=== PATIENT | male | born 1995 ===

== ENCOUNTER 2017-01-27 15:37 | Emergency (ER) | payer OTHER ==
[2017-01-27 15:49] VITALS: BMI 26.4
[2017-01-27] MEDS ORDERED: Lidocaine 5% Patch TD STA (18:06)
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
[2017-01-27] MEDS ORDERED: Lidocaine 5% Patch TD ONE (18:17)
[2017-01-27 18:31] VITALS: BP 146/90; PULSE 18; RESP 20; TEMP 98.6
[2017-01-27 18:50] VITALS: O2SAT 97
--- NOTE | 2017-01-27 19:30 | RAD ---
Chest and right ribs four views History: Fall. Comparison: None available. Findings: No focal infiltrate or effusion. Heart size within normal limits. No evidence of acute displaced fracture. No evidence of gross pneumothorax. Impression: Negative acute. If pain persists, consider chest CT.
--- NOTE | 2017-01-27 19:32 | RAD ---
Lumbar spine three views History: Fall. Comparison: None available. 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 Schmorl's node formation noted at the inferior endplates of the L2, L4, and L5 vertebral bodies. Minimal retrolisthesis of L2 on L3. 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 Schmorl's node formation noted at the inferior endplates of the L2, L4, and L5 vertebral bodies. Minimal retrolisthesis of L2 on L3. If pain persists, consider MRI.
== END 2017-01-27 18:31 | disposition home or self-care (01) ==
LOC: C.ER 15:37
DX: S39.012A Strain of muscle, fascia and tendon of lower back, initial encounter (principal); S20.211A Contusion of right front wall of thorax, initial encounter; X58.XXXA Exposure to other specified factors, initial encounter; Y92.9 Unspecified place or not applicable; J40 Bronchitis, not specified as acute or chronic
CPT/HCPCS: 71101; 72100; 96372; 99284; J1885

== ENCOUNTER 2017-02-14 14:30 | Emergency (ER) | payer OTHER ==
[2017-02-14 14:31] VITALS: BMI 26.4
[2017-02-14 14:51] VITALS: TEMP 98.5
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
[2017-02-14 17:05] VITALS: BP 115/66; PULSE 82; RESP 15
[2017-02-14 19:14] VITALS: O2SAT 98
== END 2017-02-14 17:03 | disposition home or self-care (01) ==
LOC: C.ER 14:30
DX: S02.2XXA Fracture of nasal bones, initial encounter for closed fracture (principal); Y04.0XXA Assault by unarmed brawl or fight, initial encounter; M54.5 Low back pain
CPT/HCPCS: 70160; 72100; 96372; 99283; J1885

== ENCOUNTER 2017-04-12 16:31 | Emergency (ER) | payer OTHER ==
[2017-04-12 16:31] VITALS: BMI 26.4
[2017-04-12 16:45] VITALS: BP 150/69; PULSE 84; RESP 18; TEMP 98; O2SAT 98
[2017-04-12] MEDS ORDERED: Sodium Chloride 0.9% 1,000 ML ONE (17:01)
[2017-04-12] MEDS ORDERED: Belladonna-Phenobarbital ONE (17:01)
[2017-04-12] MEDS ORDERED: Aluminum Hydroxide/Magnesium Hydroxide Susp (30 mL) ONE (17:01)
[2017-04-12 17:06] LABS: RBC URINE 1 /hpf (0-3); URINE BACTERIA RARE (<OCC); URINE BILIRUBIN NEGATIVE (NEGATIVE); URINE BLOOD NEGATIVE (NEGATIVE); URINE COLOR Yellow (YELLOW); URINE GLUCOSE (UA) NORMAL (Normal); URINE KETONE NEGATIVE (NEGATIVE); URINE LEUKOCYTE ESTERASE NEG Leu/uL (Negative); URINE PROTEIN NEGATIVE (NEGATIVE); URINE UROBILINOGEN NORMAL mg/dL (0.2-1.0)
--- NOTE | 2017-04-12 17:07 | C.PDOC ---
History Of Present Illness 21 y/o male pmhx asthma, tobacco smoker presents to the ED with complaints of intermittent LUQ pain x3 years, worse today. Pain is sharp, nonradiating and he reports trying to burp but unable to. Denies fever, nausea, vomiting, diarrhea, SOB or any other complaints. Pt also reports cough x2 weeks. He was seen here last week for same, given cough medicine which he finished but cough persists. Time Seen by Provider: 04/12/17 16:47 Chief Complaint (Nursing): Abdominal Pain History Per: Patient History/Exam Limitations: no limitations Onset/Duration Of Symptoms: Days Current Symptoms Are (Timing): Worse Severity: Moderate Recent travel outside of the [place]: No Past Medical History Reviewed: Historical Data, Nursing Documentation, Vital Signs Vital Signs: Last Vital Signs Temp 98 F 04/12/17 16:43 Pulse 84 04/12/17 16:43 Resp 18 04/12/17 16:43 BP 150/69 04/12/17 16:43 Pulse Ox 98 04/12/17 17:56 - Medical History PMH: Asthma Surgical History: Tonsillectomy Family History: States: Unknown Family Hx - Social History Hx Alcohol Use: No Hx Substance Use: No - Immunization History Hx Tetanus Toxoid Vaccination: No Hx Influenza Vaccination: No Hx Pneumococcal Vaccination: No Review Of Systems Constitutional: Negative for: Fever Cardiovascular: Negative for: Chest Pain Respiratory: Positive for: Cough. Negative for: Shortness of Breath, Sputum Gastrointestinal: Positive for: Abdominal Pain. Negative for: Nausea, Vomiting , Diarrhea Genitourinary: Negative for: Dysuria, Frequency, Incontinence, Scrotal Pain Skin: Negative for: Rash Neurological: Negative for: Weakness, Numbness, Headache, Dizziness Physical Exam - Physical Exam Appears: Non-toxic, No Acute Distress Skin: Warm, Dry, No Rash Head: Atraumatic, Normacephalic Eye(s): bilateral: Normal Inspection Nose: Normal Neck: Normal ROM Chest: Symmetrical Cardiovascular: Rhythm Regular, No Murmur Respiratory: Normal Breath Sounds, No Rales, No Rhonchi, No Wheezing Gastrointestinal/Abdominal: Bowel Sounds (normal), Soft, Tenderness (mild epigastric and LUQ tenderness), No Distention, No Guarding, No Rebound Back: Normal Inspection, No CVA Tenderness Extremity: Bilateral: Atraumatic, Normal Color And Temperature, Normal ROM Neurological/Psych: Oriented x3, Normal Speech Gait: Steady ED Course And Treatment - Laboratory Results Result Diagrams: 04/12/17 17:17 04/12/17 17:17 Lab Interpretation: No Acute Changes O2 Sat by Pulse Oximetry: 98 (room air) Pulse Ox Interpretation: Normal Medical Decision Making Medical Decision Making: Impression: Upper abdominal pain Plan: * labs * maalox * pepcid * IV fluids Progress: Labs reviewed with no acute findings. On re-eval, patient is resting comfortably, and reports pain has resolved. Abdomen remains soft, and patient is tolerating PO. Patient feels comfortable going home. Patient will be discharged home. He is asking for more cough syrup. Rx sent to pharmacy. Disposition Counseled Patient/Family Regarding: Diagnosis, Need For Followup, Rx Given - Disposition Referrals: [facility] [Outside] [facility] [Outside] [facility] [Outside] Disposition: HOME/ ROUTINE Disposition Time: 17:54 Condition: IMPROVED Additional Instructions: Your labs were normal. Please take medication to help with abdominal pain daily and try dietary changes Follow up with your doctor or clinic for further evaluation. Prescriptions: Brompheniramine/Pseudoephed/Dm [Bromfed Dm Cough 118 ml] 5 ml PO Q8 PRN #4 oz PRN Reason: Cough And Congestion Omeprazole 20 mg PO DAILY #30 capsule. Instructions: Gastritis (DC), Diet for Ulcers and Gastritis (ED) - POA Present On Arrival: None - Clinical Impression Clinical Impression: LUQ abdominal pain, Gastritis - PA / MANAGER NUCLEAR / Resident Statement MD/DO has reviewed & agrees with the documentation as recorded. - Scribe Statement The provider has reviewed the documentation as recorded by the Iesha Vaz All medical record entries made by the Iesha were at my direction and personally dictated by me. I have reviewed the chart and agree that the record accurately reflects my personal performance of the history, physical exam, medical decision making, and the department course for this patient. I have also personally directed, reviewed, and agree with the discharge instructions and disposition.
[2017-04-12] MEDS: Sodium Chloride 0.9% 1,000 ML IV ONE (17:12)
[2017-04-12] MEDS: Belladonna-Phenobarbital PO STA (17:12)
[2017-04-12] MEDS: Aluminum Hydroxide/Magnesium Hydroxide Susp (30 mL) PO STA (17:12)
[2017-04-12 17:35] LABS: BASO % 1.3 % (0.0-2.0); EOS # 0.2 K/uL (0.0-0.7); EOS % 6.2 % (0.0-4.0); HEMATOCRIT 47.7 % (35.0-51.0); LYMPH # 1.6 K/uL (1.0-4.3); MEAN CELL VOLUME 86.5 fL (80.0-94.0); MEAN CORPUSCULAR HGB CONC 33.6 g/dL (33.0-37.0); MEAN PLATELET VOLUME 8.9 fL (7.2-11.7); MONO # 0.2 K/uL (0.0-0.8); MONO % 5.3 % (0.0-10.0); NRBC % 0.2 % (0.0-2.0); WHITE BLOOD COUNT 3.8 K/uL (4.8-10.8)
[2017-04-12 17:46] LABS: CHLORIDE 106 mmol/L (98-107)
[2017-04-12 17:47] LABS: POTASSIUM 3.4 mmol/L (3.6-5.2); SODIUM 142 mmol/L (132-148)
[2017-04-12 17:49] LABS: ALB/GLOB RATIO 1.3 (1.0-2.1); ALKALINE PHOSPHATASE 48 U/L (38-126); ALT/SGPT 20 U/L (21-72); AST/SGOT 18 U/L (17-59); BILIRUBIN,TOTAL 0.7 mg/dL (0.2-1.3); BLOOD UREA NITROGEN 14 mg/dL (9-20); CARBON DIOXIDE 25 mmol/L (22-30); GFR AFRICAN-AMERICAN > 60; GLUCOSE,RANDOM 92 mg/dL (75-110); TOTAL PROTEIN 6.6 g/dL (6.3-8.3)
[2017-04-12 17:50] LABS: CALCIUM 8.6 mg/dl (8.6-10.4)
== END 2017-04-12 18:04 | disposition home or self-care (01) ==
LOC: C.ER 16:31
DX: R10.12 Left upper quadrant pain (principal); K29.70 Gastritis, unspecified, without bleeding
CPT/HCPCS: 80053; 80324; 80345; 80346; 80349; 80353; 80358; 80361; 81001; 83690; 83992; 85025; 96361; 96374; 99285; J7040

== ENCOUNTER 2017-04-29 23:42 | Emergency (ER) | payer OTHER ==
[2017-04-29 23:43] VITALS: BMI 26.4
[2017-04-30 00:01] VITALS: BP 132/70; PULSE 70; RESP 18; TEMP 98.2; O2SAT 98
[2017-04-30] MEDS ORDERED: Naproxen 550 mg Tab PO STA (00:06)
[2017-04-30] MEDS ORDERED: Naproxen 550 mg Tab PO ONE (00:13)
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
== END 2017-04-30 01:35 | disposition home or self-care (01) ==
LOC: C.ER 23:42
DX: S51.811A Laceration without foreign body of right forearm, initial encounter (principal); Y08.89XA Assault by other specified means, initial encounter

== ENCOUNTER 2017-09-20 12:10 | Emergency (ER) | payer MEDICAID, OTHER ==
[2017-09-20 12:22] VITALS: BMI 27.1
[2017-09-20 12:23] VITALS: BP 109/67; PULSE 66; RESP 18; TEMP 97.9; O2SAT 96
[2017-09-20] MEDS ORDERED: Silver Nitrate Topical - Stick ONE (13:30)
--- NOTE | 2017-09-20 17:54 | C.PDOC ---
History Of Present Illness 21 year old male presents to the ED for evaluation of dry cough which has been intermittent for 3 months. Patient states he ran out of cough medication and wants a referral for a prescription. Patient has a PMD but has not been evaluated in the past 4 months. Patient denies fever,chills, hemoptysis, and recent travel. Chief Complaint (Nursing): Back Pain History Per: Patient History/Exam Limitations: no limitations Onset/Duration Of Symptoms: Intermittent Episodes (3 months ) Current Symptoms Are (Timing): Still Present Location Of Pain: None Associated Symptoms: Cough. denies: Fever, Chills, Sputum Additional History Per: Patient Past Medical History Reviewed: Historical Data, Nursing Documentation, Vital Signs Vital Signs: Last Vital Signs Temp 97.9 F 09/20/17 12:22 Pulse 66 09/20/17 12:22 Resp 18 09/20/17 12:22 BP 109/67 09/20/17 12:22 Pulse Ox 96 09/20/17 18:09 - Medical History PMH: Asthma Surgical History: Tonsillectomy Family History: States: Unknown Family Hx - Social History Hx Alcohol Use: No Hx Substance Use: No - Immunization History Hx Tetanus Toxoid Vaccination: No Hx Influenza Vaccination: No Hx Pneumococcal Vaccination: No Review Of Systems Constitutional: Negative for: Fever, Chills Respiratory: Positive for: Cough Physical Exam - Physical Exam Appears: Non-toxic, No Acute Distress Skin: Normal Color, Warm, Dry Oral Mucosa: Moist Neck: Supple Chest: Symmetrical, No Deformity, No Tenderness Cardiovascular: Rhythm Regular, No Murmur Respiratory: Normal Breath Sounds, No Rales, No Rhonchi, No Wheezing Neurological/Psych: Oriented x3, Normal Speech, Normal Cognition Gait: Steady ED Course And Treatment O2 Sat by Pulse Oximetry: 96 (on RA) Pulse Ox Interpretation: Normal Disposition - Disposition Referrals: [facility], [Non-Staff] - Disposition: HOME/ ROUTINE Disposition Time: 13:20 Condition: GOOD Additional Instructions: Thank you for letting us take care of you today. The emergency medical care you received today was directed at your acute symptoms. If you were prescribed any medication, please fill it and take as directed. It may take several days for your symptoms to resolve. Return to the Emergency Department if your symptoms worsen, do not improve, or if you have any other problems. Please contact your doctor or call one of the physicians/clinics you have been referred to that are listed on the Patient Visit Information form that is included in your discharge packet. Bring any paperwork you were given at discharge with you along with any medications you are taking to your follow up visit. Our treatment cannot replace ongoing medical care by a primary care provider (PCP) outside of the emergency department. Thank you for allowing the [facility] team to be part of your care today. Follow up with your doctor in 3-4 days for re-evaluation and further management. Prescriptions: Benzonatate [Tessalon Perle] 100 mg PO Q8 PRN #20 capsule PRN Reason: Cough Dextromethorphan Polistirex [12-Hour Cough Relief] 30 mg PO Q12 PRN #1 [id number] PRN Reason: Cough Instructions: Asthma (ED) - Clinical Impression Clinical Impression: Chronic cough - Scribe Statement The provider has reviewed the documentation as recorded by the Scribe (Roxy Maurice) Provider Attestation: All medical record entries made by the Scribe were at my direction and personally dictated by me. I have reviewed the chart and agree that the record accurately reflects my personal performance of the history, physical exam, medical decision making, and the department course for this patient. I have also personally directed, reviewed, and agree with the discharge instructions and disposition.
--- NOTE | 2017-09-21 22:21 | CARD ---
APPROVED REPORT EKG Measurement Heart [id number] <Conclusion> Sinus bradycardia with sinus arrhythmia Otherwise normal ECG
== END 2017-09-20 13:52 | disposition home or self-care (01) ==
LOC: C.ER 12:10
DX: R05 Cough (principal)

== ENCOUNTER 2018-01-31 15:39 | Emergency (ER) | payer MEDICAID, OTHER ==
[2018-01-31 15:40] VITALS: BMI 25.1
[2018-01-31 15:54] VITALS: BP 115/75; PULSE 79; RESP 18; TEMP 98; O2SAT 98
--- NOTE | 2018-01-31 17:11 | RAD ---
PROCEDURE: Right Knee Radiographs. HISTORY: knee injury COMPARISON: None. FINDINGS: BONES: Bone alignment and mineralization are normal. There is no acute displaced fracture or bone destruction. JOINTS: Normal. JOINT EFFUSION: There is a small suprapatellar joint effusion. OTHER FINDINGS: None. IMPRESSION: No acute fracture or dislocation. Small suprapatellar joint effusion.
--- NOTE | 2018-01-31 17:12 | RAD ---
PROCEDURE: Radiographs of the right tibia and fibula. HISTORY: fall, pain to the knee and leg COMPARISON: None available. TECHNIQUE: Frontal and lateral views obtained. FINDINGS: BONES: Bone alignment and mineralization are normal. No fracture or destructive lesion. JOINT SPACES: Unremarkable. OTHER FINDINGS: None. IMPRESSION: No acute fracture or dislocation.
[2018-01-31] MEDS ORDERED: Dexamethasone 4 mg/1 ml IM STA (17:41)
[2018-01-31] MEDS ORDERED: Lidocaine 5% Patch TD STA (17:41)
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
[2018-01-31] MEDS ORDERED: Lidocaine 5% Patch TD ONE (17:58)
== END 2018-01-31 18:36 | disposition home or self-care (01) ==
LOC: C.ER 15:39
DX: S83.91XA Sprain of unspecified site of right knee, initial encounter (principal); X58.XXXA Exposure to other specified factors, initial encounter; M54.30 Sciatica, unspecified side
CPT/HCPCS: 73562; 73590; 99285; J8540